=== PATIENT | female | born 1965 | race Caucasian/White ===

== ENCOUNTER 2019-01-25 15:26 | Emergency (ER) | payer BC, OTHER ==
--- NOTE | 2019-01-25 15:31 | PDOC ---
History of Present Illness - General Chief Complaint: Vaginal Bleeding Stated Complaint: VAGINAL BLEEDING Time Seen by Provider: 01/25/19 15:29 Past History - Past Medical History Allergies/Adverse Reactions: Allergies Allergy/AdvReac Type Severity Reaction Status Date / Time No Known Allergies Allergy Verified 01/25/19 15:29 Home Medications: Ambulatory Orders NK [No Known Home Medication] 01/25/19 COPD: No
[2019-01-25 15:37] VITALS: TEMP 99; BMI 22.3
[2019-01-25 16:35] LABS: BASO % 0.5 % (0-2.0); EOS % 0.7 % (0-4.5); HEMATOCRIT 38.1 % (32.4-45.2); HEMOGLOBIN 12.9 GM/dl (10.7-15.3); LYMPH % 12.8 % (8-40); MCHC 33.8 g/dl (32.0-36.0); MEAN CELL VOLUME 94.6 fl (80-96); MEAN PLT VOLUME 8.1 fl (7.5-11.1); MONO % 4.1 % (3.8-10.2); NEUT % 81.9 % (42.8-82.8); PLATELET COUNT 330 K/MM3 (134-434); RBC 4.02 M/mm3 (3.60-5.2); RDW 11.6 % (11.6-15.6); WHITE BLOOD COUNT 7.1 K/mm3 (4.0-10.8)
[2019-01-25 16:42] LABS: ACTIVATED PTT 29.8 SECONDS (25.2-36.5)
[2019-01-25 16:45] LABS: ALBUMIN 4.1 g/dl (3.4-5.0); ALK PHOS 81 U/L (45-117); ANION GAP 5 MMOL/L (8-16); BILIRUBIN,TOTAL 0.9 mg/dl (0.2-1); BLOOD UREA NITROGEN 13 mg/dl (7-18); CALCIUM 9.5 mg/dl (8.5-10); CHLORIDE 103 mmol/L (98-107); CO2 29 mmol/L (21-32); CREATININE 0.7 mg/dl (0.55-1.3); GLUCOSE,RANDOM 102 mg/dl (74-106); POTASSIUM 3.8 mmol/L (3.5-5.1); SGOT/AST 21 U/L (15-37); SGPT/ALT 12 U/L (13-61); SODIUM 137 mmol/L (136-145); TOT PROT 7.5 g/dl (6.4-8.2)
[2019-01-25 16:47] LABS: HCG,QUALITATIVE URINE Negative
[2019-01-25 16:48] LABS: INR 1.11 (0.82-1.09); PROTHROMBIN TIME (PATIENT) 12.4 SEC (10.2-13.0)
--- NOTE | 2019-01-25 16:57 | PDOC ---
History of Present Illness - General Chief Complaint: Vaginal Bleeding Stated Complaint: VAGINAL BLEEDING Time Seen by Provider: 01/25/19 15:29 History Source: Patient Exam Limitations: No Limitations - History of Present Illness Initial Comments: 01/25/19 17:25 53 year old female c/ pmh Hodgkin's Lymphoma in remission, HLD p/w vaginal bleeding. The patient has a complicated history over the course of the month with vaginal bleeding. 12/19, underwent an elective outpatient LEEP procedure with Esteban Guillen. No vaginal bleeding at that time. A week later, the patient has been having on and off bleeding which she had seen her provider relations representative surgeon several times. She had received Monsel solution and cauterization which seemed to improve the symptoms. In the last 3 days, the bleeding had worsened but not hemorrhaging. Pt has been changing her pads more, but denies lightheadedness, chest pain, SOB. Pt had called her [employer]ER who sent the patient to the ER for possible Monsel solution. Past History - Past Medical History Allergies/Adverse Reactions: Allergies Allergy/AdvReac Type Severity Reaction Status Date / Time No Known Allergies Allergy Verified 01/25/19 15:29 Home Medications: Ambulatory Orders NK [No Known Home Medication] 01/25/19 COPD: No - Suicide/Smoking/Psychosocial Hx Smoking History: Never smoked Hx Alcohol Use: No Drug/Substance Use Hx: No Review of Systems - Review of Systems Able to Perform ROS?: Yes Comments:: 01/25/19 17:28 GENERAL/CONSTITUTIONAL: [No fever or chills. No weakness. No weight change.] HEAD, EYES, EARS, NOSE AND THROAT: [No change in vision. No ear pain or discharge. No sore throat.] CARDIOVASCULAR: [No chest pain or shortness of breath.] RESPIRATORY: [No cough, wheezing, or hemoptysis.] GASTROINTESTINAL: [No nausea, vomiting, diarrhea or constipation. No rectal bleeding.] GENITOURINARY: [No dysuria, frequency, or change in urination.] [employer]: + vaginal bleeding MUSCULOSKELETAL: [No joint or muscle swelling or pain. No neck or back pain.] SKIN AND BREASTS: [No rash or easy bruising.] NEUROLOGIC: [No headache, vertigo, loss of consciousness, or loss of sensation.] PSYCHIATRIC: [No depression or anxiety.] ENDOCRINE: [No increased thirst. No abnormal weight change.] HEMATOLOGIC/LYMPHATIC: [No anemia, easy bleeding, or history of blood clots.] ALLERGIC/IMMUNOLOGIC: [No hives or skin allergy. No latex allergy.] *Physical Exam - Vital Signs Last Vital Signs Temp Pulse Resp BP Pulse Ox 99.0 F 93 H 18 138/77 100 01/25/19 15:26 01/25/19 15:26 01/25/19 15:26 01/25/19 15:26 01/25/19 15:26 - Physical Exam Comments: 01/25/19 17:28 GENERAL: Awake, alert, and fully oriented, in no acute distress HEAD: No signs of trauma EYES: EOMI, sclera anicteric, conjunctiva clear ENT: Auricles normal inspection, hearing grossly normal, nares patent, Moist mucosa NECK: Normal ROM, supple, LUNGS: Breath sounds equal, clear to auscultation bilaterally. No wheezes, and no crackles HEART: Regular rate and rhythm, normal S1 and S2, no murmurs, rubs or gallops ABDOMEN: Soft, nontender, . No guarding, no rebound. No masses [employer]: Blood clots in the vaginal vault. No active bleeding. No rashes or lesions. EXTREMITIES: Normal range of motion, no edema. No clubbing or cyanosis. No cords, erythema, or tenderness NEUROLOGICAL: Cranial nerves II through XII grossly intact. Normal speech SKIN: Warm, Dry, normal turgor, no rashes or lesions noted. ED Treatment Course - LABORATORY CBC & Chemistry Diagram: 01/25/19 16:09 01/25/19 16:09 - ADDITIONAL ORDERS Additional order review: Laboratory Results 01/25/19 01/25/19 01/25/19 16:18 16:09 16:09 PT with INR 12.4 INR 1.11 PTT (Actin FS) 29.8 Sodium 137 Potassium 3.8 Chloride 103 Carbon Dioxide 29 Anion Gap 5 L BUN 13 Creatinine 0.7 Creat Clearance w eGFR 87.87 Random Glucose 102 Calcium 9.5 Total Bilirubin 0.9 AST 21 ALT 12 L Alkaline Phosphatase 81 Total Protein 7.5 Albumin 4.1 Urine Color Red Urine Appearance Cloudy Urine pH 7.0 Urine Protein 3+ H Urine Glucose (UA) Negative Urine Ketones 1+ H Urine Blood 3+ H Urine Nitrite Negative Urine Bilirubin Negative Urine Urobilinogen 0.2 Ur Leukocyte Esterase Trace Urine HCG, Qual Negative 01/25/19 16:09 RBC 4.02 MCV 94.6 MCHC 33.8 RDW 11.6 MPV 8.1 Neutrophils % 81.9 Lymphocytes % 12.8 Monocytes % 4.1 Eosinophils % 0.7 Basophils % 0.5 Medical Decision Making - Medical Decision Making 01/25/19 17:29 Vital Signs Temp Pulse Resp BP Pulse Ox 99.0 F 90 18 124/70 97 01/25/19 15:26 01/25/19 17:27 01/25/19 17:27 01/25/19 17:27 01/25/19 17:27 [employer] bleeding 2/2 Leep procedure. Not actively bleeding Hgb and vitals reassurring. I have spoken to Dr. Lorenz, covering for Dr. Guillen. Does not have privileges at [facility]. After discussion, I stated that I will call [facility] [employer] [facility]. I have spoken to Dr. Monae ([facility]) and Dr. Keenan. Given no active bleeding, they recommended no Monsel solution as that could aggravate bleeding. I had spoken to the patient. Given no active bleeding, they stated they will trial bed rest and observation. If the bleeding worsens, the patient should go to the ER for Monsol solution. She feels reassurred and agrees with plan. She will go home with . *DC/Admit/Observation/Transfer Diagnosis at time of Disposition: Vaginal bleeding - Discharge Dispostion Disposition: HOME Condition at time of disposition: Stable Decision to Admit order: No - Referrals Referrals: Rekha Guillen MD [Non Staff, Medical] - - Patient Instructions Printed Discharge Instructions: DI for Loop Electrosurgical Excision Procedure Additional Instructions: Please bring a copy of the blood work to Dr. Guillen's office. At this time, I have spoken to our [employer] surgeons here at [facility]. Given that there is blood clots and no anemia, they have decided to hold off from the Monsol Solution. Please call on Monday to schedule a follow up visit with your [employer] doctor. If you notice that your are having worsening bleeding, please call your doctor and go to the ER. - Post Discharge Activity
[2019-01-25 17:28] VITALS: BP 124/70; PULSE 90
== END 2019-01-25 17:40 | disposition home or self-care (01) ==
LOC: FER 15:26
DX: N93.9 Abnormal uterine and vaginal bleeding, unspecified (principal); C85.90 Non-Hodgkin lymphoma, unspecified, unspecified site; E78.5 Hyperlipidemia, unspecified
CPT/HCPCS: 36415; 80053; 81003; 81015; 84703; 85025; 85610; 85730; 86850; 86900; 86901; 99283-25